=== PATIENT | male | born 1970 | race Caucasian/White ===

== ENCOUNTER 2018-11-29 12:19 | Outpatient (CLI) | payer OTHER ==
[2014-07-30 10:06] VITALS: BMI 28.7
--- NOTE | 2018-11-29 16:20 | DI ---
EXAM: Mandible, four views HISTORY: Arthralgia of bilateral temporal mandibular joint. COMPARISON: None TECHNIQUE: Four views mandible were performed FINDINGS/IMPRESSION: No fracture or dislocation. Temporal mandibular joints, poorly visualized.
== END 2018-11-29 12:20 | disposition home or self-care (01) ==
LOC: LAB 12:19
PROVIDERS: ATTEND Nurse Practitioner Family
DX: M26.623 Arthralgia of bilateral temporomandibular joint (principal); Z87.448 Personal history of other diseases of urinary system; Z82.49 Family history of ischemic heart disease and other diseases of the circulatory system
CPT/HCPCS: 36415; 80053; 85025